=== PATIENT | female | born 2000 | race Caucasian/White ===

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

== ENCOUNTER → 2019-03-09 | Outpatient (CLI) | payer OTHER ==
[~2019-03-09] MED LIST changes: +AMOX-559 PO; -OMEP-125 PO; +OMEP-126 PO; +PREN-127 PO; +SERT-1 PO
--- NOTE | 2019-03-09 14:29 | RADIOLOGY IMAGING REPORT ---
FACILITY: [facility] PATIENT NAME: Alejandra Chung : 2000 MR: [id number] V: [id number] EXAM DATE: ORDERING PHYSICIAN: VALENTINO JONES TECHNOLOGIST: Location: [facility] Patient: Alejandra Chung : 2000 Visit/Account:[id number] Date of Sevice: 03/09/2019 OB Ultrasound > 14 weeks with anatomic evaluation HISTORY: Anatomic survey. COMPARISON STUDIES: None available FINDINGS: Intrauterine gestations: one presentation: Vertex heart rate: 146 bpm Amniotic fluid index: 15.7 cm Largest amniotic fluid pocket 5.0 cm Placenta: Anterior without previa Uterus: gravid, otherwise normal Maternal adnexa: Unremarkable Cervix: long and closed Gestational Parameters: BPD: 4.33 cm 19 weeks and 1 day. 83rd percentile HC: 15.96 cm 18 weeks and 6 days. 68 percentile AC: 13.18 cm 18 weeks and 5 days. 61st percentile FL: 2.86 cm 18 weeks and 6 days. The 3rd percentile Average ultrasound age (AUA): 19 weeks and 0 days Estimated gestational age based on LMP datin weeks and 2 days JESS: 08/03/2019. Estimated weight (EFW): 256 g +/-38 g EFW: 74th percentile based on LMP dating Anatomic Survey: Intracranial structures, 4-chamber heart, stomach, kidneys, urinary bladder, spine, 3-vessel cord and cord insertion are unremarkable. Two upper and two lower extremities visualized. IMPRESSION: 1. Single live intrauterine gestation; estimated ultrasound age 19 weeks and 0 days. 2. Unremarkable anatomic survey Report Dictated By: Hugh Beltran MD at 03/09/2019 1:54 PM Report E-Signed By: Hugh Beltran MD at 03/09/2019 2:21 PM WSN:MARIA LUZ
== END ==
LOC: US 10:41
PROVIDERS: ATTEND Advanced Practice Midwife
DX: Z34.92 Encounter for supervision of normal pregnancy, unspecified, second trimester (principal)

== ENCOUNTER 2019-03-11 02:31 | Observation (INO) | payer OTHER ==
[~2019-03-11] VITALS: Ht 154.9 cm; Wt 63.3 kg
[~2019-03-11 02:31] MED LIST changes: -PREN-127 PO
[2019-03-11] MEDS ORDERED: PREN-127 PO (02:42)
--- NOTE | 2019-03-11 02:42 | ER Report ---
History and Physical Time Seen By MD: 02:37 Hx. of Stated Complaint: Right flank pain HPI/ROS CHIEF COMPLAINT: Right flank pain HISTORY OF PRESENT ILLNESS: Patient that it is 19 weeks based on ultrasound done yesterday presents with sudden onset right lower flank pain. This woke her from sleep a little over an hour ago. She went to bed feeling like she was having some pain with urination but not severe. She has no nausea, vomiting, anorexia, fever, chills, vaginal bleeding vaginal discharge, or pelvic cramping. This is her 1st . She does not have any history of kidney stones. She denies any hematuria. She has no abdominal surgeries. REVIEW OF SYSTEMS: Constitutional: No fever, no chills. Eyes: No eye redness ENT: No sore throat. Cardiovascular: No chest pain, no palpitations. Respiratory: No cough, no shortness of breath. Gastrointestinal: Some radiation of the pain to the right lower quadrant Genitourinary: Negative except history of present illness Musculoskeletal: Negative except history of present illness Skin: No rashes. Neurological: No headache. Allergies: Coded Allergies: No Known Drug Allergies (Unverified , 03/11/19) Home Meds Active Scripts Sertraline Hcl (ZOLOFT) 50 Mg Tablet, 1 TAB PO QDAY for Depression for 30 Days, #30 TAB 7 Refills Prov:VALENTINO JONES CNM 02/16/19 Triamcinolone Acetonide 0.1% Cr 15 Gm Tube (TRIAMCINOLONE ACETONIDE 0.1% CREAM) 15 Gm Cream..g., 1 LEONEL TP BID PRN for ECZEMA, #1 TUBE 0 Refills Prov:SANDY SESAY DNP, FNP-BC 11/18/18 Omeprazole (OMEPRAZOLE) 20 Mg Capsule.dr, 1 CAP PO QDAY for ACID REFLUX, #30 CAP 2 Refills Prov:SANDY SESAY DNP, FNP-BC 11/18/18 Desogestrel-Ethinyl Estradiol (Desogest-Eth Estra 0.15-0.03MG) 0.15 Mg-0.03 Mg Tablet, 1 TAB PO QDAY, #1 PACK 11 Refills Prov:SANDY SESAY DNP, FNP-BC 11/18/18 Reported Medications Vits W-Ca,Fe,Fa(<1MG) ( VITAMINS) 1 Each Tablet, 1 EACH PO DAILY, TAB 03/11/19 Hx Smoking: No Smoking Status: Never Smoker Exposure to Second Hand Smoke?: No Hx Alcohol Use: Yes Constitutional Vital Sign - Last 24 Hours 03/11/19 03/11/19 03/11/19 03/11/19 02:33 02:38 02:46 03:00 Temp 97.9 Pulse 83 78 Resp 20 B/P (MAP) 123/61 (81) 123/61 121/62 (81) Pulse Ox 93 95 O2 Delivery Room Air 03/11/19 03/11/19 03/11/19 03/11/19 03:30 03:46 04:00 04:01 Pulse 74 83 B/P (MAP) 112/59 (76) 117/88 (98) Pulse Ox 95 93 Physical Exam General Appearance: The patient is alert, has no immediate need for airway protection and no signs of toxicity. Eyes: Negative scleral icterus ENT, Mouth: Mucous membranes are moist. Respiratory: No respiratory distress, normal respiratory rate Cardiovascular: Regular rate and rhythm. Equal pulses throughout. Gastrointestinal: Uterus near the level of umbilicus, minimal tenderness in the right lower quadrant, negative rebound, guarding, rigidity. Neurological: Moves all 4 charities, AxO 3 Skin: Warm and dry, no rashes. Musculoskeletal: Extremities are nontender, nonswollen and have full range of motion. : Mild right CVA tenderness. DIFFERENTIAL DIAGNOSIS: After history and physical exam differential diagnosis was considered for kidney stone versus pyelonephritis versus ovarian cyst rupture versus ovarian torsion versus appendicitis Medical Decision Making Data Points Result Diagram: 03/11/19 0255 03/11/19 0255 Laboratory Hematology Test 03/11/19 02:55 White Blood Count 15.8 k/uL (4.5-11.0) H Red Blood Count 4.59 M/uL (4.17-5.56) Hemoglobin 13.5 g/dL (12.0-16.0) Hematocrit 38.8 % (34.0-47.0) Mean Corpuscular Volume 84.7 fL (80.0-96.0) Mean Corpuscular Hemoglobin 29.3 pg (26.0-33.0) Mean Corpuscular Hemoglobin Concent 34.6 g/dL (32.0-36.0) Red Cell Distribution Width 13.8 % (11.5-14.5) Platelet Count 265 K/uL (150-450) Mean Platelet Volume 8.9 fL (7.2-11.1) Neutrophils (%) (Auto) 78.5 % (39.4-72.5) H Lymphocytes (%) (Auto) 14.8 % (17.6-49.6) L Monocytes (%) (Auto) 5.7 % (4.1-12.4) Eosinophils (%) (Auto) 0.7 % (0.4-6.7) Basophils (%) (Auto) 0.3 % (0.3-1.4) Nucleated RBC Relative Count (auto) 0.2 /100WBC Neutrophils # (Auto) 12.4 K/uL (2.0-7.4) H Lymphocytes # (Auto) 2.3 K/uL (1.3-3.6) Monocytes # (Auto) 0.9 K/uL (0.3-1.0) Eosinophils # (Auto) 0.1 K/uL (0.0-0.5) Basophils # (Auto) 0.0 K/uL (0.0-0.1) Nucleated RBC Absolute Count (auto) 0.03 K/uL Chemistry Test 03/11/19 02:55 Sodium Level 136 mmol/L (137-145) Potassium Level 3.5 mmol/L (3.5-5.0) Chloride Level 106 mmol/L (98-107) Carbon Dioxide Level 20 mmol/L (22-31) Blood Urea Nitrogen 7 mg/dl (7-18) Creatinine 0.50 mg/dl (0.52-1.04) Glomerular Filtration Rate Calc > 60.0 Random Glucose 93 mg/dl (75-110) Calcium Level 9.4 mg/dl (8.4-10.2) Urinalysis Test 03/11/19 02:31 Urine Color Straw Urine Clarity Clear Urine pH 7.0 pH (4.8-9.5) Urine Specific [place] 1.005 Urine Protein Negative mg/dL (NEGATIVE) Urine Glucose (UA) Negative mg/dL (NEGATIVE) Urine Ketones Negative mg/dL (NEGATIVE) Urine Blood Moderate (NEGATIVE) Urine Nitrite Negative (NEGATIVE) Urine Bilirubin Negative (NEGATIVE) Urine Urobilinogen Negative mg/dL (0.2-1.9) Urine Leukocyte Esterase Moderate (NEGATIVE) Urine RBC 1 /HPF (0-2/HPF) Urine WBC 98 /HPF (0-5/HPF) Urine Squamous Epithelial Cells Few /LPF (</=FEW) Urine Transitional Epithelial Cells Moderate /LPF (NONE-FEW) Urine Bacteria Few /HPF (NONE-FEW) Urine Mucus None /HPF (NONE-FEW) ED Course/Re-evaluation ED Course Medical decision-making: Concern for kidney stone versus possible early appendectomy versus ovarian pathology. We'll start with UA, ultrasound, lab work and analgesics. Patient is informed of risk of opioids and but for now benefits out weigh the risks. Re-evaluation On reevaluation, patient is feeling mildly improved after Tylenol. After reviewing her lab work with the synovial count 15,000, and white blood cells and leukocyte esterase in her urinalysis without nitrites, I am concerned that she could be having white blood cells in the urine due to appendicitis so instead of ultrasound will do an MRI of the abdomen and pelvis. Patient's MRI is not definitively viewing the appendix but after review with the radiologist and no secondary findings of inflammation, think this is less likely appendicitis. Pyelonephritis and renal stone are both still possible. Given the amount of white blood cells in the patient's urine and her white blood cell count, presumed pyelonephritis and at this time and administered IV antibiotics, IV fluids. I admitted the patient to with OB service for further care. At time of admission, verbal report from MRI was given. Report still pending. Decision to Disposition Date: Mar 11, 2019 Decision to Disposition Time: 05:15 Depart Departure Latest Vital Signs Vital Signs Date Time Temp Pulse Resp B/P (MAP) Pulse Ox O2 Delivery O2 Flow Rate FiO2 03/11/19 04:01 83 93 03/11/19 04:00 117/88 (98) 03/11/19 02:38 97.9 20 Room Air Impression: Primary Impression: Pyelonephritis during Condition: Improved Disposition: HOME OR SELF-CARE Referrals: SANDY SESAY DNP, [employer] TECHNICAL LEAD SENIOR DEVELOPER-BC (PCP) TAI CUMMINGS DO Mar 11, 2019 02:42
[2019-03-11] MEDS ORDERED: NS(*) 0.9% 1000 ML BAG 1,000 ML IV ONE ×2 (02:43→05:40)
[2019-03-11] MEDS ORDERED: ACETAMINOPHEN 325 MG TAB PO ONE (02:45)
[2019-03-11] MEDS ORDERED: MORPHINE 4 MG/ML SDV IVP PRN (02:55)
[2019-03-11] MEDS ORDERED: METOCLOPRAMIDE 10 MG/2 ML SDV IVP PRN (02:55)
[2019-03-11 03:13] LABS: PLATELET COUNT, AUTOMATED 265 K/uL (150-450)
[2019-03-11] MEDS ORDERED: cefTRIAXone 1 GM VIAL ONE (05:42)
[2019-03-11 06:35] VITALS: BP 116/64
[2019-03-11] MEDS ORDERED: FAMOTIDINE 20 MG TAB PO PRN (06:40)
[2019-03-11] MEDS ORDERED: ONDANSETRON 4 MG/2 ML VIAL IVP PRN (06:40)
[2019-03-11 07:05] VITALS: BP 119/64
--- NOTE | 2019-03-11 08:12 | History & Physical ---
History of Present Illness Age of Patient: 18 : 4 Para or TPAL: 0 EDC per LMP: Aug 03, 2019 Estimated Gestational Age: 18.4 Chief Complaint Right Flank pain History of Present Illness 18 y/o @ 18-4/7 wga who presented to the ER with a chief complaint of Right flank pain that started around 0130 this morning. Reports she had the urge to go to the restroom followed by a sharp stabbing pain in the back. Pt reports that she waited for about 30 minutes and then called her grandmother whom told her to go to the ER. Pt denies any fevers or chills. Denies any blood in her urine. No cramping or contractions. Never had pain like this before. History Rubella Status: Immune Obstetrical History: Past Medical History: Non contributory Allergies: Coded Allergies: No Known Drug Allergies (Unverified , 03/11/19) Social History: Denies use of ETOH or recreational drugs. Family History: Benign tumor FATHER, Age:39 FH: asthma MOTHER, Age:40 No pertinent family history BROTHER OR SISTER BROTHER OR SISTER BROTHER OR SISTER HALF BROTHER HALF BROTHER HALF BROTHER Med Rec Home Meds Reported Medications Vits W-Ca,Fe,Fa(<1MG) ( VITAMINS) 1 Each Tablet, 1 EACH PO DAILY, TAB 03/11/19 Discontinued Scripts Sertraline Hcl (ZOLOFT) 50 Mg Tablet, 1 TAB PO QDAY for Depression for 30 Days, #30 TAB 7 Refills Prov:VALENTINO JONES [facility] 02/16/19 Triamcinolone Acetonide 0.1% Cr 15 Gm Tube (TRIAMCINOLONE ACETONIDE 0.1% CREAM) 15 Gm Cream..g., 1 LEONEL TP BID PRN for ECZEMA, #1 TUBE 0 Refills Prov:SANDY SESAY DNP, FNP-VIVIANA 11/18/18 Omeprazole (OMEPRAZOLE) 20 Mg Capsule.dr, 1 CAP PO QDAY for ACID REFLUX, #30 CAP 2 Refills Prov:SANDY SESAY DNP, FNP-BC 11/18/18 Desogestrel-Ethinyl Estradiol (Desogest-Eth Estra 0.15-0.03MG) 0.15 Mg-0.03 Mg Tablet, 1 TAB PO QDAY, #1 PACK 11 Refills Prov:SANDY SESAY DNP, DIPLOMATIC OFFICER-BC 11/18/18 Review of Systems All Systems Reviewed/Normal: Yes, Except as Noted Constitutional: No Fever, No Weight Loss, No Weight Gain, No Chills, No Night S weats, No Other Neurological: No Syncope, No Confusion, No Weakness, No Dizziness, No Slurred Speech, No Other Eyes: No Vision Change, No Loss of Vision, No Photophobia, No Other Respiratory: No Shortness of Breath, No Cough, No Wheezing, No Other Gastrointestinal: No Nausea, No Vomiting, No Diarrhea, No Dysphagia, No Constipation, No Early Satiety, No Hematemesis, No Hematochezia, No Melena, No Abdominal Pain, No Other Genitourinary: Other (flank pain) Musculoskeletal: No Pain, No Sprain, No Strain, No Impaired Mobility, No Other Psychiatric: No Depression, No Anxiety, No Other Exam General Exam Vital Signs Vital Signs Date Time Temp Pulse Resp B/P (MAP) Pulse Ox O2 Delivery O2 Flow Rate FiO2 03/11/19 07:15 Room Air 03/11/19 07:05 98.2 85 18 119/64 (82) 95 General Apperance: Alert/Awake/No Acute Distress Neuro: No Gross deficits Eyes: Normal Extraocular Movement & Vison, PERRLA Cardiovascular: Regular Rate and Rhythm Respiratory: No Respiratory Distress, Clear to Auscultation : CVA Tenderness Musculoskeletal: No Weakness/Pain Extremities: No Cyanosis,Clubbing or Edema Integumentary: Skin Intact without Lesions or Rash Psychological: Alert & Oriented X3, Appropriate Mood & Affect Fetus Heart Tones: 140 (bedside doppler) Medical Decision Making Data Points Result Diagram: 03/11/195 03/11/19 0255 Pre-Admit Course Medical Record Review: Yes VTE Prophylasis: Adult Deep Vein Thrombosis/Pulmonary: No Assessment and Plan DIRECTOR OF PHARMACY Assessment: Stable Problems: (1) Right flank pain Assessment & Plan: Will treat empirically for Pyelonephritis. Pt getting IV fluids at 180 cc/hr. Received 1 gm IV Ceftriaxone at 0600 this AM. If still admitted will get second dose tomorrow morning. Pt underwent MRI that hasn't been resulted at this time. With her CBC having only a white count of 15 but +LE/Blood/transitional cell epithelial cells with few squamous epithelial cells present Pyelonephritis is still a possibility. Pt is afebrile. Will also need to consider the possibility of a kidney stone. Will await MRI results for possible stone. (2) Pyelonephritis during Status: MESFIN Palm DO Mar 11, 2019 08:12
[2019-03-11] MEDS ORDERED: cefTRIAXone 1 GM VIAL IVP SCH (09:00)
[2019-03-11] MEDS: LR(*) 1000 ML BAG 1,000 ML IV PRN ×2 (10:28→15:55)
[2019-03-11] MEDS: ACETAMINOPHEN 500 MG TAB PO PRN ×2 (10:31→18:43)
[2019-03-11 11:14] VITALS: BP 119/79
--- NOTE | 2019-03-11 14:44 | RADIOLOGY IMAGING REPORT ---
FACILITY: [facility] PATIENT NAME: Alejandra Chung : 2000 MR: [id number] V: [id number] EXAM DATE: ORDERING PHYSICIAN: TAI CUMMINGS TECHNOLOGIST: Location: [facility] Patient: Alejandra Chung : 2000 Visit/Account:[id number] Date of Sevice: 03/11/2019 MR ABDOMEN W/O CON HISTORY: . Abdominal pain. ADDITIONAL HISTORY: None. TECHNIQUE: Multiplanar multisequence magnetic resonance imaging of the abdomen without intravenous c ontrast. CONTRAST: None. COMPARISON: None. FINDINGS: The examination was tailored for evaluation of the appendix and not evaluation. The appendix is not visualized on this examination. Tiny amount of free fluid within the cul-de-sac. Mild right hydronephrosis. IMPRESSION: 1. Nonvisualization of the appendix. 2. Tiny amount of pelvic free fluid. 3. Mild right hydronephrosis which may be physiologic secondary to gravid uterus Report Dictated By: Koko Gibson MD at 03/11/2019 2:24 PM Report E-Signed By: Koko Gibson MD at 03/11/2019 2:36 PM WSN:[id number]
[2019-03-11 15:27] VITALS: Ht 154.9 cm; Wt 63.3 kg
[2019-03-11 15:29] VITALS: BP 126/72
[2019-03-11] MEDS ORDERED: LR(*) 1000 ML BAG 1,000 ML IV PRN (16:20)
[2019-03-11 19:45] VITALS: BP 120/59
[2019-03-12 00:09] VITALS: BP 130/72
[2019-03-12 04:38] VITALS: BP 113/47
[2019-03-12] MEDS ORDERED: cefTRIAXone 1 GM VIAL IVP SCH ×2 (06:00)
[2019-03-12 06:25] LABS: PLATELET COUNT, AUTOMATED 221 K/uL (150-450)
--- NOTE | 2019-03-12 08:51 | OB/GYN Discharge Summary ---
Discharge Summary Reason for Hosp/Final Diag: (1) Right flank pain Status: Resolved (2) Pyelonephritis during Status: Resolved Lates Vital Signs Vital Signs Date Time Temp Pulse Resp B/P (MAP) Pulse Ox O2 Delivery O2 Flow Rate FiO2 03/12/19 04:38 97.9 89 16 113/47 (69) 93 Room Air Weight (Pounds): 139 Weight (Ounces): 8.0 Result Diagram: 03/12/1940 03/12/19539 Condition: Improved Discharge: Home, Self Fdc Meds Reported Medications Vits W-Ca,Fe,Fa(<1MG) ( VITAMINS) 1 Each Tablet, 1 EACH PO DAILY, TAB 03/11/19 Discontinued Scripts Sertraline Hcl (ZOLOFT) 50 Mg Tablet, 1 TAB PO QDAY for Depression for 30 Days, #30 TAB 7 Refills Prov:VALENTINO JONES CNM 02/16/19 Triamcinolone Acetonide 0.1% Cr 15 Gm Tube (TRIAMCINOLONE ACETONIDE 0.1% CREAM) 15 Gm Cream..g., 1 LEONEL TP BID PRN for ECZEMA, #1 TUBE 0 Refills Prov:SANDY SESAY DNP, GEAR TECHNICIAN-BC 11/18/18 Omeprazole (OMEPRAZOLE) 20 Mg Capsule.dr, 1 CAP PO QDAY for ACID REFLUX, #30 CAP 2 Refills Prov:SANDY SESAY DNP, GEAR TECHNICIAN-BC 11/18/18 Desogestrel-Ethinyl Estradiol (Desogest-Eth Estra 0.15-0.03MG) 0.15 Mg-0.03 Mg Tablet, 1 TAB PO QDAY, #1 PACK 11 Refills Prov:SANDY SESAY DNP, GEAR TECHNICIAN-BC 11/18/18 Follow up with: [facility] [phone] (as scheduled, call if having any problems ) Discharge Diet: As Tolerates Discharge Activity: As Tolerates AMARI VILLAREAL DO Mar 12, 2019 08:51
--- NOTE | 2019-03-12 08:52 | OB/GYN Progress Note ---
OB Subjective Progress Notes Subjective Pt states her pain is resolved. She is feeling baby move some with no LOF or VB. She has no fevers. SHe is ready for d/c OB Objective Physical Exam Vital Signs Date Time Temp Pulse Resp B/P (MAP) Pulse Ox O2 Delivery O2 Flow Rate FiO2 03/12/19 04:38 97.9 89 16 113/47 (69) 93 Room Air Intake and Output 03/12/19 07:03 Intake Total 6046 ml Output Total 2500 ml Balance 3546 ml Intake Oral 1290 ml IV Total 1549 ml Other 3207 ml Output Urine Total 2500 ml # Voids 4 # Emes[place] 1 General Appearance: Alert/Awake/No Acute Distress Neurological: No Gross deficits Eyes: Normal Extraocular Movement & Vison, PERRLA Respiratory: No Respiratory Distress, Clear to Auscultation Abdomen: Soft, Non-Tender, Non-Distended Extremities: No Cyanosis,Clubbing or Edema Integumentary: Skin Intact without Lesions or Rash Psychological: Alert & Oriented X3, Appropriate Mood & Affect Result Diagram: 03/12/19 0540 03/12/19 0540 Assessment and Plan Problems: (1) Right flank pain Status: Resolved (2) Pyelonephritis during Status: Resolved Assessment & Plan: stable for d/c to home. AMARI VILLAREAL DO Mar 12, 2019 08:52
[2019-03-12 09:40] VITALS: BP 118/64
== END 2019-03-12 08:52 | disposition home or self-care (01) ==
LOC: ER 02:34 → PED 06:13 → INTOOBSV 06:13
PROVIDERS: ADMIT Student in an Organized Health Care Education/Training Program; ATTEND Student in an Organized Health Care Education/Training Program
DX: O23.02 Infections of kidney in pregnancy, second trimester (principal); Z3A.19 19 weeks gestation of pregnancy
CPT/HCPCS: 36415; 74181; 81001; 85025; 87077; 87088; 87186; 96361; 96374; 99284; G0378; J0696; J2405; J7030; J7120; 82040; 82247; 82310; 82374; 82435; 82565; 82947; 84075; 84132; 84155; 84295; 84450; 84460; 84520